=== PATIENT | male | born 1970 | race Caucasian/White ===

== ENCOUNTER 2017-07-26 11:42 | Emergency (ER) | payer MEDICAID ==
[~2017-07-26] VITALS: Ht 185.4 cm; Wt 65.0 kg
[2017-07-26] MEDS ORDERED: ACYCLOVIR800 MG PO (11:54)
[2017-07-26] MEDS ORDERED: ATORVASTATIN CA20 MG PO (11:55)
[2017-07-26] MEDS ORDERED: AMBIEN10 MG PO (11:55)
[2017-07-26] MEDS ORDERED: CIALIS20 MG PO (11:57)
[2017-07-26] MEDS ORDERED: FISH OIL1 CAP PO (12:04)
[2017-07-26] MEDS ORDERED: FLEXERIL PO (12:05)
[2017-07-26] MEDS ORDERED: FLONASE AL50 MCG/ACT (12:07)
[2017-07-26] MEDS ORDERED: HYDROCO/APAP1 TA9 PO (12:09)
[2017-07-26] MEDS ORDERED: LIPITOR20 MG PO (12:10)
[2017-07-26] MEDS ORDERED: RANITIDINE300 M1 PO (12:11)
[2017-07-26] MEDS ORDERED: TERAZOSIN HCL2 MG PO (12:12)
[2017-07-26] MEDS ORDERED: TRICOR145 MG PO (12:14)
[2017-07-26] MEDS ORDERED: ZANTAC300 MG PO (12:14)
[2017-07-26] MEDS ORDERED: CEPHALEXIN500 MG PO (12:52)
[2017-07-26 12:55] VITALS: BP 119/86
== END 2017-07-26 13:01 | disposition home or self-care (01) | DRG 605 ==
LOC: ED 11:42
DX: S60.312A Abrasion of left thumb, initial encounter (principal); I10 Essential (primary) hypertension; F17.210 Nicotine dependence, cigarettes, uncomplicated; M06.9 Rheumatoid arthritis, unspecified; W29.3XXA Contact with powered garden and outdoor hand tools and machinery, initial encounter